=== PATIENT | female | born 1970 | race Caucasian/White ===

== ENCOUNTER 2019-02-08 13:01 | Emergency (ER) | payer OTHER, SELFPAY ==
[2019-02-08 13:10] VITALS: BP 192/85; PULSE 87; RESP 18; TEMP 37.1; O2SAT 95; BMI 45.3
--- NOTE | 2019-02-08 13:24 | ED_ITS ---
HPI - Skin/Abscess/Foreign Bdy <SHONA Pereyra - Last Filed: 02/08/19 13:27> General Chief complaint: Skin/Abscess/Foreign Body Stated complaint: Bug bite on rt ankle Time Seen by Provider: 02/08/19 13:03 Source: patient Mode of arrival: ambulatory Limitations: no limitations History of Present Illness HPI narrative: The patient is a 48-year-old female nonsmoker with history of dysfunctional uterine bleeding who presents with a chief complaint of an infected bug bite on her right lower leg. She states she was bitten by a bug last week while camping, and thought nothing of it. She states that it was normal for the past week, then yesterday she noticed extending redness, which got progressively worse today. She denies any fevers nausea vomiting or diarrhea. She states that the area of redness is now painful. She denies any history of diabetes. Related Data Home Medications Medication Instructions Recorded Confirmed etodolac 200 mg PO BIDCC #0 11/27/16 Previous Rx's Medication Instructions Recorded tramadol 50 mg PO Q6HP PRN #20 tab 11/27/16 cephalexin 500 mg PO QID #40 cap 02/08/19 Allergies Allergy/AdvReac Type Severity Reaction Status Date / Time No Known Drug Allergies Allergy Verified 02/08/19 13:18 Review of Systems <SHONA Pereyra - Last Filed: 02/08/19 13:27> Review of Systems GENERAL: Denies chills, fatigue, malaise, fever, sweats. HEENT: Denies sinus pain, ear pain, sore throat, difficulty swallowing, dizziness. RESPIRATORY: Denies dyspnea, cough, wheezing, hemoptysis, sputum. CARDIOVASCULAR: Denies chest pain, palpitations, orthopnea, edema, GASTROINTESTINAL: Denies nausea, vomiting, abdominal pain, diarrhea, constipation, melena. : Denies dysuria, frequency, incontinence, hematuria, urinary retention. MUSCULOSKELETAL: denies weakness, joint pain, or bony pain SKIN: See HPI NEUROLOGIC: Denies weakness, headache, numbness, change in speech, confusion, seizures, incoordination. PSYCHIATRIC: No concerning psychosocial issues. 12 point review of systems is negative except for those stated above PFSH <SHONA Pereyra - Last Filed: 02/08/19 13:27> Surgical History Status post delivery (09/06/91) Status post delivery (03/04/93) Social History Smoking Status: Never smoker Social History Smoking Status: Never smoker Exam <RACHEL Pereyra - Last Filed: 02/08/19 13:27> Narrative Exam Narrative: GENERAL: Pleasant obese female in no acute distress HEAD: Atraumatic. Normocephalic. No temporal or scalp tenderness. EYES: Pupils equal round and reactive. Extraocular motions intact. No scleral icterus. No injection or drainage. ENT: Nose without bleeding, purulent drainage or septal hematoma. Throat without erythema, tonsillar hypertrophy or exudate. Uvula midline. Airway patent. NECK: Trachea midline. No JVD or lymphadenopathy. Supple, nontender, no meningeal signs. CARDIOVASCULAR: Regular rate and rhythm RESPIRATORY: Clear to auscultation. Breath sounds equal bilaterally. No wheezes, rales, or rhonchi. No cough. No increased respiratory effort. No accessory muscle use. GASTROINTESTINAL: Abdomen soft, non-tender, nondistended. No hepato- splenomegaly, or palpable masses. No guarding. EXTREMITIES: See skin exam. Positive pedal pulses right foot. BACK: Nontender without deformity or crepitance. No flank tenderness. NEURO: AOx3. SKIN: 9 x 4 cm of erythema and pain to palpation the distal aspect of the right lower leg. Noted on medial side. No obvious drainage. Initial Vital Signs Initial Vital Signs: Vital Signs Temperature 98.8 F 02/08/19 13:10 Pulse Rate 87 02/08/19 13:10 Respiratory Rate 18 02/08/19 13:10 Blood Pressure 192/85 H 02/08/19 13:10 Pulse Oximetry 95 02/08/19 13:10 <Dianne David DO - Last Filed: 02/09/19 07:31> Initial Vital Signs Initial Vital Signs: Vital Signs Temperature 98.8 F 02/08/19 13:10 Pulse Rate 87 02/08/19 13:10 Respiratory Rate 18 02/08/19 13:10 Blood Pressure 192/85 H 02/08/19 13:10 Pulse Oximetry 95 08/18/19 13:10 Course <FRED Pereyra-BC - Last Filed: 02/08/19 13:27> Vital Signs - 8 hr 02/08/19 13:10 Temperature 98.8 F Pulse Rate 87 Respiratory Rate 18 Blood Pressure 192/85 H Pulse Oximetry 95 <Dianne DO Joann - Last Filed: 02/09/19 07:31> Vital Signs - 8 hr 02/08/19 13:10 Temperature 98.8 F Pulse Rate 87 Respiratory Rate 18 Blood Pressure 192/85 H Pulse Oximetry 95 MDM - Skin/Abscess/Foreign Bdy <FRED Pereyra-BC - Last Filed: 02/08/19 13:27> MDM Narrative Medical decision making narrative: The patient is a 48-year-old female who presents with chief complaint of an infected bug bite on her lower leg. Exam indicates cellulitis. Since she has no recent hospitalizations, has no systemic symptoms, and a history of diabetes, I will initiate treatment with cephalexin. I discussed at length resting her leg, monitor for worsening such as spreading redness despite several doses of antibiotics, fever etc. Encourage PCP follow- up. Discussed going back to the ER for any acute concerns such as inability keep down fluids, shortness of breath, chest pain etc. Patient has no questions or concerns upon discharge. Discharge Plan Departure Patient Disposition: Home Clinical Impression: Cellulitis Qualifiers: Site of cellulitis: extremity Site of cellulitis of extremity: lower extremity Laterality: right Qualified Code(s): L03.115 - Cellulitis of right lower limb Discharge Date/Time: 02/08/19 13:41 Interventions: ED Discharge Assessment Last Done: 02/08/19 13:40 Instructions: DI for Cellulitis -- Adult Activity Restrictions/Additional Instructions: I have given you a prescription for an antibiotic. Please monitor for fever, inability keep down fluids or any acute concerns. Please monitor for signs of systemic infection such as fever, vomiting and diarrhea. Please follow up with your primary care provider. Please come back to the emergency department for any acute concerns. Prescriptions: New cephalexin 500 mg capsule 500 mg PO QID Qty: 40 RF: 0 No Action etodolac 200 MG capsule 200 mg PO BIDCC Qty: 0 RF: 0 tramadol 50 MG tablet 50 mg PO Q6HP PRNQty: 20 RF: 0 Referrals: Glenn Minor MD [Primary Care Provider] - <Dianne David DO - Last Filed: 02/09/19 07:31> Cosign ED Attending Zekeature Attestation: I was immediately available in the department for consultation. Documentation has been reviewed. I agree with assessment and plan.
[2019-02-08 13:40] VITALS: BP 187/95
== END 2019-02-08 13:41 | disposition home or self-care (01) ==
PROVIDERS: Emergency Provider Nurse Practitioner Family; PCP Family Medicine
DX: L03.115 Cellulitis of right lower limb (principal)
CPT/HCPCS: 99282; 99283

== ENCOUNTER → 2021-02-20 15:48 | Outpatient (CLI) | payer OTHER, SELFPAY ==
--- NOTE | 2021-02-20 15:51 | DI.RAD.S_ITS ---
PROCEDURE: XR KNEE LT 3V INDICATIONS: LEFT KNEE PAIN TECHNIQUE: 3 views of the knee were acquired. COMPARISON: [facility], , KNEE 3V RIGHT, 11/27/2016, 10:25. FINDINGS: Bones: No fractures or dislocations. No suspicious bony lesions. Mild tricompartmental knee joint space narrowing with periarticular osteophyte formation, most notably involving the lateral patellofemoral knee joint. Soft tissues: Small joint effusion. No suspicious soft tissue calcifications. IMPRESSION: Tricompartmental knee joint degeneration, most notably involving the patellofemoral knee joint. Dictated by: Froy Holly [facility] Interpreted: Steve White MD on 02/20/2021 at 16:31 Transcribed by: REYNA on 02/20/2021 at 16:31 Approved by: Steve White M.D. on 02/20/2021 at 17:14
== END ==
PROVIDERS: PCP Family Medicine; Referring Provider Family Medicine; Visit Provider Family Medicine
DX: M25.562 Pain in left knee (principal); M17.12 Unilateral primary osteoarthritis, left knee
CPT/HCPCS: 73562

== ENCOUNTER → 2021-03-03 14:14 | Outpatient (CLI) | payer OTHER, SELFPAY ==
--- NOTE | 2021-03-03 | DI.MRI.S_ITS ---
PROCEDURE: MR KNEE LT WO CON INDICATIONS: Pain in left knee TECHNIQUE: Noncontrast sagittal PD fast spin echo and T2 fast spin echo with fat saturation, sagittal 3-D FLASH with fat saturation; coronal T1 spin echo and PD fast spin echo with fat saturation, and axial PD fast spin echo with fat saturation through the knee. COMPARISON: None. FINDINGS: Menisci: Medial meniscus: Ill-defined T2 hyperintense signal changes seen at the peripheral margin of the posterior horn of the medial meniscus raising possibility of meniscocapsular separation versus peripheral tear. Lateral meniscus: Intact. Cruciate ligaments: Anterior cruciate ligament: Intact. Posterior cruciate ligament: Intact. Medial structures: The medial collateral ligament: Intact. Semimembranosus tendon: Insertional tendinopathy and thickening. Visualized pes anserinus tendons: Intact. Bursal fluid: none. Lateral structures: The lateral collateral ligament intact. Biceps femoris tendon appears intact. Popliteus tendon grossly unremarkable. Iliotibial band appears intact. Anterior structures: Quadriceps tendon: Intact. Medial patellofemoral ligament: Intact. Lateral patellofemoral ligament: Intact. Patellar tendon: Mild tendinopathy. Anterior soft tissues: Prepatellar and superficial infrapatellar subcutaneous edema/fluid. Deep infrapatellar region: Normal. Bones and cartilage: Marrow: Focal marrow edema involving the posterior tibial plateau, which could be reactive to meniscal pathology described above versus marrow contusion. Medial compartment: Diffuse surface fraying and mild partial thickness chondral loss of the femoral tibial cartilage. Lateral compartment: Mild intrasubstance signal changes involving the central weight-bearing tibial cartilage. The femoral cartilage appears grossly intact. Patellofemoral compartment: Diffuse partial-thickness loss of the patellar articular cartilage. Near full-thickness fissuring of the central femoral trochlea. Joint space: Effusion: Trace joint effusion. Popliteal fossa: Small Doty's cyst measuring 3 cm in the cephalocaudal dimension. Loose bodies: None. IMPRESSION: Ill-defined T2 hyperintense signal changes involving the periphery of the posterior horn/root of the medial meniscus which suggests peripheral tear versus meniscocapsular separation. Adjacent marrow edema within the posterior tibial plateau could be marrow contusion versus reactive. Patellar tendinopathy with adjacent fluid/edema. Small Doty's cyst Tricompartmental joint degeneration as above. Dictated by: Ethan Domingo M.D. on 03/03/2021 at 15:17 Approved by: Ethan Domingo M.D. on 03/03/2021 at 15:35
== END ==
PROVIDERS: PCP Family Medicine; Referring Provider Family Medicine; Visit Provider Family Medicine
DX: M25.562 Pain in left knee (principal); M17.12 Unilateral primary osteoarthritis, left knee; M71.22 Synovial cyst of popliteal space [Baker], left knee
CPT/HCPCS: 73721

== ENCOUNTER → 2021-05-01 10:36 | Outpatient (CLI) | payer OTHER, SELFPAY ==
--- NOTE | 2021-05-01 10:37 | DI.US.S_ITS ---
PROCEDURE: US PELVIC COMPLETE INDICATIONS: DUB TECHNIQUE: Real-time scanning was performed of the pelvic organs, with image documentation. Additional endovaginal scanning was necessary due to incomplete visualization of the adnexal and endometrial structures by transabdominal scanning. COMPARISON: [facility], US, US PELVIC COMPLETE, 11/18/2020, 11:55. FINDINGS: Uterus: Uterus is normal in size at 8.6 x 4.8 x 5.2 cm. The endometrium measures 3.9 mm in combined thickness. There is a focus of uterine heterogeneous echogenicity in the left anterior intramural aspect measuring 14 x 7 x 12 mm. Ovaries: Right ovary measures 3.0 x 2.4 x 2.1 cm. Focus of decreased echogenicity is present within the right ovary measuring 2.3 x 1.4 x 1.6 cm. Left ovary measures 2.6 x 1.3 x 1.4 cm. Other: No pathologic free abdominal or pelvic fluid. IMPRESSION: Simple right ovarian cyst. Focus of uterine heterogeneous echogenicity suggestive of fibroid. Dictated by: Katy Arambula M.D. on 05/01/2021 at 15:53 Approved by: Katy Arambula M.D. on 05/01/2021 at 15:54
== END ==
PROVIDERS: PCP Family Medicine; Referring Provider Obstetrics & Gynecology; Visit Provider Obstetrics & Gynecology
DX: N93.8 Other specified abnormal uterine and vaginal bleeding (principal); N92.1 Excessive and frequent menstruation with irregular cycle; N83.291 Other ovarian cyst, right side
CPT/HCPCS: 76830; 76856

== ENCOUNTER → 2021-08-28 14:44 | Outpatient (CLI) | payer OTHER, SELFPAY ==
[2021-08-28 16:32] LABS: COVID19 -Nasal RAPID Negative (Negative)
== END ==
PROVIDERS: PCP Family Medicine; Visit Provider Obstetrics & Gynecology
DX: Z01.812 Encounter for preprocedural laboratory examination (principal); Z20.822 Contact with and (suspected) exposure to COVID-19
CPT/HCPCS: 87635

== ENCOUNTER 2021-08-29 12:22 | Day surgery (SDC) | payer OTHER, SELFPAY ==
[2021-08-23 14:52] VITALS: BMI 44.7
[2021-08-29] VITALS (11 sets, daily range): BP systolic 96–157; BP diastolic 47–80; PULSE 54–95; RESP 10–21; TEMP 35.8–36.7; O2SAT 96–100; BMI 44.7
--- NOTE | 2021-08-29 | PATH_ITS ---
[facility] Accession Number: [id number] . 01 Material submitted: . uterus - UTERUS, BILATERAL FALLOPIAN TUBES . 02 Diagnosis: Uterus, Bilateral Fallopian Tubes, Hysterectomy and Bilateral Salpingectomies (Disrupted Uterus Weight 61 grams): Portions of weakly proliferative and disordered proliferative endometrium; negative for glandular hyperplasia, cytologic atypia, or malignancy. Myometrium with patchy regions suggestive of involvement by by adenomyosis and with one leiomyoma (up to 11 mm in greatest dimension). Serosal surface with no significant histomorphologic abnormality. Portions of fallopian tube x2, complete cross-sections with rare benign paratubal cysts (3 mm); negative for atypia or malignancy. [facility] 09/04/2021 1518 Local . 02 Electronically signed: . Camelia Connor MD, Pathologist NPI- [id number] . 01 Gross description: . Received in formalin, labeled with the patient's name, and additionally labeled uterus and bilateral fallopian tubes is a disrupted uterus weighing 61 grams and aggregating 6.5 x 5.5 x 4.0 cm. The serosa is modi-brown, smooth and glistening. A probable portion of ectocervix is also present measuring 2.1 x 1.1 x 0.5 cm. The specimen is sectioned revealing predominantly unremarkable cut surfaces with a single whorled nodule measuring 1.1 cm in greatest dimension seen on a disrupted surface. Where seen, the endometrial strip is no more than 2.0 mm in thickness. Also present are two detached fimbriated fallopian tubes measuring 6.0 cm in length and up to 0.7 cm in diameter, and 5.0 cm in length and up to 0.7 cm in diameter. The serosal surface is modi-brown, smooth and glistening with numerous simple paratubal cysts up to 0.3 cm seen on each tube. The fallopian tubes are sectioned revealing stellate lumina. No masses or lesions are identified. (MS:[id number]) A1: random serosa A2-3: endomyometrium A4: first described tube A5: second described tube /MRV 09/04/2021 1518 Local . 02 Pathologist provided ICD-10: N92.1, D25.9 . 02 CPT . 103245 Performed at: 01 [facility] [address] [address], [place], [place] [id number] MD Kenneth Hayes MD Phone: [phone] Performed at: 02 [facility] [address] [place] [id number] MD Monique Vega MD Phone: [phone]
[2021-08-29] MEDS: LACTATED RINGERS 1,000 ML 42 ML IV (12:44)
--- NOTE | 2021-08-29 12:54 | SUR.OPER ---
Lithotomy on padded OR bed. Starbrick Pad Positioner under torso. Head on pillow, arms padded and tucked at sides. Legs secured in padded yellow fins stirrups.
[2021-08-29] MEDS: ACETAMINOPHEN IV 1,000 MG/100 ML VIAL 400 MG IV (13:04)
--- NOTE | 2021-08-29 13:16 | PM.PREOP ---
Pre-operative Note COVID-19 COVID-19 status: Negative Result date/Date tested (Pos, Neg/Pending): 08/28/21 Criteria for continued procedure: Non-surgical alternatives not available or appropriate per current SOC Interval Note History & Physical reviewed/Exam performed by Physician: Yes Changes to H&P: No
[2021-08-29] MEDS: BUPIVACAINE 0.5% (PF) 30 ML, EPINEPHrine 0.15 MG INJ (14:46)
[2021-08-29] MEDS: ROPIVACAINE 0.2% PF 2 MG/ML 10ML AMP 20 ML INJ (14:47)
[2021-08-29] MEDS: CEFAZOLIN 1 GM VIAL 2 GM IV (14:51)
--- NOTE | 2021-08-29 16:05 | SUR.PHASEI ---
Report to Pavel CENTENO
--- NOTE | 2021-08-29 16:06 | P.OP_ITS ---
Operative Date/Time/Diagnoses Date of procedure: 08/29/21 Time of procedure: 14:00 Pre-op diagnosis: Menorrhagia Post-op diagnosis: same Procedure & Clinicians Procedure: Procedures Operation Date: 08/29/21 13:30 Actual Procedure Side Surgeon p Laparoscopic Supracervical Hysterectomy w. bilateral salpingectomy Grupo Magdaleno MD Indications: Kia is a 50 yo , LMP 08/16/2020 who was seen by Dr. Loraine Smith in October 2020 due to episodic bleeding after she discontinued use of Depo-Provera in June 2020 following at least 6 years of continued use. An in-office US by Dr. Smith showed midline uterus, anteflexed at prior section scar, measuring 8.04 x 4.4 cm.? Endometrium thin throughout most of uterus, but fundal lesion measuring 10.5 x 8.9 mm.? No additional blood flow, etiology unclear.? Left ovary visualized, 3.49 x 1.99 cm.? 1.81 simple, involuting appearing cyst.? Right ovary 1.99 x 1.53 cm with multiple small follicles.? Patient tolerated exam well, no free fluid in the pelvis.? Endometrial biopsy performed at that visit produced a specimen which showed scant fragments of endometrial glandular elements which showed no evidence of atypia or other cytologic abnormalities.? She experienced no further bleeding until 01/26 when she started a period which lasted until 03/04/2021.? Because her menopausal status was unclear, FSH performed 02/16/2021 which was 12.7 (menopausal 16.7-113.6) with LH 6.5 (menopausal 10.87-58.64).? She started bleeding again 03/19/2021 and was placed on 10 days of Provera which resolved her bleeding and she's had no further bleeding since that time.? She's not having any VMS, NS, insomnia, or symptoms of UG atrophy although she's not sexually active. A follow-up US performed 05/01/2021 showed: FINDINGS:? ?? Uterus:? Uterus is normal in size at 8.6 x 4.8 x 5.2 cm.? The endometrium measures 3.9 mm in combined thickness.? There is a focus of uterine heterogeneous echogenicity in the left anterior intramural aspect measuring 14 x 7 x 12 mm. ? Ovaries:? Right ovary measures 3.0 x 2.4 x 2.1 cm.? Focus of decreased echogenicity is present within the right ovary measuring 2.3 x 1.4 x 1.6 cm.? Left ovary measures 2.6 x 1.3 x 1.4 cm. ? Other: ? No pathologic free abdominal or pelvic fluid. ? IMPRESSION:? Simple right ovarian cyst. ? Focus of uterine heterogeneous echogenicity suggestive of fibroid. Since by initial assessment of the patient is in the fall of 2020, her periods have continued to be completely chaotic with extremely heavy flow, passage of clots, severe cramping, and accidental overflows despite use of tampons and pads.? After consideration of all options the patient has decided to proceed with laparoscopic supracervical hysterectomy with bilateral salpingectomy.? She is currently scheduled for her surgery in the Main OR of [facility] on 08/29/2021 and presents today for her scheduled surgery. Surgeon: Grupo Magdaleno Supervisor Braiding: Kimberly Glover Anesthesia Type: General Operative Notes Findings: The uterus is upper limits of normal size and the anterior cul-de-sac demonstrates changes consistent with prior sections. Both fallopian tubes are normal in their entirety. There was a 1.5 cm follicular cyst in the left ovary but otherwise the ovaries normal. The right ovary is normal. Appendix is visualized and is normal. Posterior cul-de-sac does not demonstrate any significant adhesions. Upper abdomen is normal to laparoscopic visualization. Closure Type: primary Specimen(s): left tube, right tube and uterus Applied: catheter Estimated blood loss (mL): 50 Blood products transfused: none Procedure in detail: With the patient under satisfactory general endotracheal anesthesia in the modified dorsal lithotomy position, the perineum, vagina, and abdomen were prepped and draped in the usual manner for laparoscopic supracervical hysterectomy. A pre-surgical safety time-out was then taken in accordance with [facility] protocols. A Bray catheter was inserted in the bladder and a speculum inserted in the vagina. The cervix was visualized and a single- tooth tenaculum was applied to the anterior lip. The endocervical canal was dilated so as to be able to introduce a VCare uterine manipulator with a medium cup. The umbilicus was then infiltrated with 0.5% Marcaine with epinephrine and a 5 mm vertical umbilical incision was then made. Veress needle was used to insufflate the abdomen with carbon dioxide and once fully insufflated, a 5 mm trocar and sleeve were placed through the umbilical incision. Presence of the laparoscopic sleeve inside the abdomen was confirmed by laparoscopic inspection and a 2nd and 3rd 5 mm port was placed in the right and left mid quadrants using the same technique as the umbilicus. Using a 3 puncture technique the pelvis and abdomen were thoroughly visualized and the patient was placed in steep Trendelenburg. The left fallopian tube was elevated with a grasping forcep and the fimbria varicose coagulated and divided using the PK device. The dissection was carried down across the mesosalpinx and the tube was amputated at the cornua. The tube was then removed through 1 of the 5 mm ports and submitted as part of the aggregate specimen. Section will PK was then taken down across the utero-ovarian and round ligaments then downward lateral to the vessels on the left side. The bladder flap was initiated on the left side and carried across the midline with the PK device. Vessels were coagulated at the level of the endocervical canal and attention was turned to the right side. The right f allopian tube was grasped by the fimbria and elevated so as to be able to coagulate and divide the fimbria varicose on the right. The dissection with the PK was then taken across the mesosalpinx and the tube on the right amputated. It too was removed through a 5 mm port and submitted as part of the aggregate specimen. The dissection on the right side was then carried out as it had been on the left with coagulation and division of the utero-ovarian ligament, round ligament, then downward lateral to the vessels to the level of the endocervical canal. The bladder flap was completed without difficulty and the vessels on the right side were coagulated. The VCare uterine manipulator was then removed. There was complete blanching of the uterine fundus and the Glo loop was used to amputate the uterine corpus at the level of the endocervical canal. Hemostasis was excellent and the PK device was used to coagulate the endocervical canal. A 4 cm transverse incision along the line of her old scars was then made and carried down to the deep fascia. A 12 mm port was then introduced through the incision and a large Endo-Catch was used to retrieve the uterus. The fascia was extended bilaterally and an Yuan device was placed into the Endo-Catch bag so was to be able to morcellate the specimen. Morcellation was accomplished without difficulty and the mini-laparotomy incision was closed with 0 Vicryl in a running stitch to close the fascia and subcutaneous tissues. The abdomen was then reinsufflated and laparoscopic inspection of the pelvis conducted. There were no other abnormalities and no bleeding noted. The pneumoperitoneum was then vented and the skin edges of all the incisions were brought together with 4-0 Monocryl inverted interrupted stitches. Appropriate dressings were then applied and the patient awakened from anesthesia. She was then transferred to the PACU for a period of observation and recovery having tolerated the procedure well. Complications: none Post-operative Condition: stable Disposition: PACU Plan for aftercare: Routine postoperative care with discharge AM POD #1.
[2021-08-29] MEDS: LACTATED RINGERS 1,000 ML 100 ML IV (16:41)
[2021-08-29] MEDS: DOCUSATE 100 MG CAPSULE 200 MG PO (20:26)
[2021-08-30] MEDS: LACTATED RINGERS 1,000 ML 100 ML IV (02:03)
[2021-08-30 03:12] VITALS: BP 142/70; PULSE 70; RESP 18; TEMP 36.6; O2SAT 100
[2021-08-30] MEDS: ACETAMINOPHEN 325 MG TABLET 650 MG PO (05:03)
[2021-08-30] MEDS: IBUPROFEN 600 MG TABLET PO (05:04)
[2021-08-30 05:58] LABS: Add Manual Diff / Slide Review NO; Basophils Absolute Auto 0 /uL (0-100); Eosinophils Absolute Auto 0 /uL (0-450); Hematocrit 32.8 % (36-46); Hemoglobin 10.9 g/dL (12.0-16.0); Lymphocytes Absolute Auto 1000 /uL (1100-4500); Lymphocytes Percent Auto 5.3 % (25-40); Mean Corpuscular HGB Conc 33.1 % (30-36); Mean Corpuscular Hemoglobin 29.3 PG (26-34); Mean Corpuscular Volume 88.6 fL (80-100); Monocytes Absolute Auto 600 /uL (0-900); Monocytes Percent Auto 3.3 % (3-14); Neutrophils Absolute Auto 17400 /uL (1500-7000); Neutrophils Percent Auto 91.4 % (50-75); Platelet Count 102 X10^3/uL (150-400); Red Cell Distribution Width 14.5 % (11.6-14.8); White Blood Cell Count 19.1 X10^3/uL (4.5-11.0)
[2021-08-30 07:00] VITALS: BP 138/70; PULSE 72; RESP 19; TEMP 36.1; O2SAT 100
--- NOTE | 2021-08-30 07:53 | P.DS_ITS ---
History of Present Illness History of Present Illness Date Patient Seen: 08/30/21 Time Patient Seen: 07:54 Chief complaint: [facility] W/NICOLE SALPINGECTOMY *OPB* Narrative: Kia is a 50 yo , LMP 08/16/2020 who was seen by Dr. Loraine Smith in October 2020 due to episodic bleeding after she discontinued use of Depo-Provera in June 2020 following at least 6 years of continued use. An in-office US by Dr. Smith showed midline uterus, anteflexed at prior section scar, measuring 8.04 x 4.4 cm.? Endometrium thin throughout most of uterus, but fundal lesion measuring 10.5 x 8.9 mm.? No additional blood flow, etiology unclear.? Left ovary visualized, 3.49 x 1.99 cm.? 1.81 simple, involuting appearing cyst.? Right ovary 1.99 x 1.53 cm with multiple small follicles.? Patient tolerated exam well, no free fluid in the pelvis.? Endometrial biopsy performed at that visit produced a specimen which showed scant fragments of endometrial glandular elements which showed no evidence of atypia or other cytologic abnormalities.?Since by initial assessment of the patient is in the fall of 2020, her periods have continued to be completely chaotic with extremely heavy flow, passage of clots, severe cramping, and accidental overflows despite use of tampons and pads.? After consideration of all options the patient has decided to proceed with laparoscopic supracervical hysterectomy with bilateral salpingectomy.? She is currently scheduled for her surgery in the [facility] on 08/29/2021 and was admitted for this scheduled procedure. Discharge Providers Provider Date of admission: 08/29/2021 Discharge Date: 08/30/21 Primary care physician: Glenn Minor MD Discharge provider: Grupo Magdaleno MD Summary Hospital Course Discharge Diagnosis: Menorrhagia Hospital Course: On the afternoon of 08/29/2021, the patient underwent an uneventful laparoscopic supracervical hysterectomy with removal of both fallopian tubes. Details of that procedure and findings at the time of surgery are well summarized on my operative note of that date. Following her surgery the patient has had prompt return of bowel and bladder function, she is ambulating independently, tolerating regular diet, and her pain is well controlled with oral pain medications. She will be discharged at this time to home with medications to include OTC Tylenol/ibuprofen for post-surgical pain and OTC stool softeners for constipation as needed. Prior to discharge the patient was counseled regarding precautionary symptoms, limitations of activity, medications, and plans for follow-up which will be in 2 weeks. Status at Discharge Cognitive/behavioral status at discharge: oriented Functional status at discharge: independent ambulation Overall status at discharge: patient is progressing back to baseline Time Spent with Patient Time spent: Less than 30 minutes Exam Vital Signs (past 8 hours): - 08/30/21 03:12 08/30/21 07:00 Temperature 97.9 F 96.9 F L Pulse Rate 70 72 Respiratory Rate 18 19 Blood Pressure 142/70 H 138/70 Pulse Oximetry 100 100 Oxygen Delivery Method Room Air Oxygen Flow Rate 0 Const General: cooperative and comfortable Nutritional Appearance: average body habitus Orientation: alert and oriented x3 HENMT Head: normal to inspection, normocephalic and atraumatic Face and sinus: face symmetric Eyes General: appearance normal, both eyes and all related structures Conjunctivae: conjunctivae normal Sclera: sclerae normal EOM: EOM intact bilaterally Neck Neck: normal visual inspection Resp Effort & Inspection: normal respiratory effort and able to speak in complete sentences Auscultation: clear to auscultation bilaterally Cardio Rate: regular rate Rhythm: regular rhythm Heart Sounds: S1 normal, S2 normal and no murmurs GI Inspection: normal to inspection and incision (Laparoscopy port incision and mini-lap dressings clean and dry) Palpation: soft and no hepatosplenomegaly Auscultation: normal bowel sounds General: other (Deferred) Psych Appearance: grossly normal Mental Status: mental status grossly normal Speech and Movement: speech and movement normal Mood: congruent mood Affect: normal affect Attitude: cooperative Thought Process: normal Thought Content: normal Judgment: judgment good Objective Labs Result Diagrams: 08/30/21 05:39 Labs: Laboratory Results - last 24 hr 08/30/21 05:39 WBC 19.1 H RBC 3.70 L Hgb 10.9 L Hct 32.8 L MCV 88.6 MCH 29.3 MCHC 33.1 RDW 14.5 Plt Count 102 L Neut % (Auto) 91.4 H Lymph % (Auto) 5.3 L [place] % (Auto) 3.3 Eos % (Auto) 0.0 L Baso % (Auto) 0.0 Neut # (Auto) 67136 H Lymph # (Auto) 1000 L [place] # (Auto) 600 Eos # (Auto) 0 Baso # (Auto) 0 PFSH Surgical History Status post delivery (09/06/91) Status post delivery (03/04/93) Social History household members: spouse Smoking Status: Never smoker alcohol intake: current Discharge Assessment & Plan Assessment and Plan Assessment: S/P laparoscopic supracervical hysterectomy with bilateral salpingectomy for menorrhagia Plan of Treatment: Routine postoperative care with follow-up scheduled for 2 weeks postop. Discharge Plan Discharge Plan Patient Disposition: Home Provider Discharge Comment: Please review the written instructions provided when your discharge from the hospital. Your follow-up appointment will be in 2 weeks and I look forward to seeing you then. If in the meanwhile however you have any issues, problems, or concerns, please feel free to contact me through the office phone or via the patient portal Discharge orders & Medications Discharge Orders: Discharge (Order); Ordered 08/30/21 Ordered By: Grupo Magdaleno Prescriptions: Continued cetirizine [Zyrtec] 10 mg tablet 10 mg PO DAILY PRN (Reason: Allergies) 0RF lisinopril 40 mg tablet 40 mg PO DAILY 0RF hydrochlorothiazide 12.5 mg capsule 12.5 mg PO DAILY 0RF Follow up/Referrals: Glenn Minor MD [Primary Care Provider] - Diet/Activity/Treatments Diet: Diet as Tolerated Activity: As tolerated Other treatments: [id number] Tylenol and/or ibuprofen for pain Skin/Wound/Dressing Care Dressing: Dressings may be removed on the morning of 08/31/2021 Visit Report/Discharge Packet Instructions: DI for Hysterectomy, DI for Laparoscopy Print Language: Mauritian Discharge Data Primary Care Provider: Glenn Minor Attending Provider: Grupo Magdaleno VTE Deep Vein Thrombosis/Pulmonary Embolism Present on Admission: No
[2021-08-30 08:13] VITALS: BP 138/74
[2021-08-30] MEDS: hydroCHLOROthiazide 25 MG TABLET 12.5 MG PO (08:13)
[2021-08-30] MEDS: lisinopriL 20 MG TABLET 40 MG PO (08:13)
[2021-08-30] MEDS: DOCUSATE 100 MG CAPSULE 200 MG PO (08:13)
[2021-08-30 08:57] VITALS: TEMP 36.1
--- NOTE | 2021-08-30 09:00 | PC.NURSE ---
Pt is dressed and ready for discharge home with Spouse. Pt denies pain, nausea, or shortness of breath. IV has been removed. Went over d/c instructions with Pt-discussed d/c meds, time of last dose, reviewed stroke education, encouraged fluid intake and deep breathing exercise and reduce lifting heavy weights. Pt deines further questions and will follow up as directed.
--- NOTE | 2021-08-30 11:04 | CM.DANOTE ---
DCP: Case received, EMR reviewed and met with patient. Introduced self and role. Patient was getting ready to leave, was independently ambulating in her room. DCP assessment completed with information currently available. Patient is a 50 year old female who admitted yesterday morning to the care of the RN NEONAT[facility] team. PCP: Dr. Minor. Payer: confirmed: [employer]. Patient came to the hospital for a surgical procedure. Patient had laparascopic hysterectomy. According to notes, patient has history of excessive and frequent menstruation with irregular Leiomyoma of uterus. Met with patient in her room. She is independent, has family support. Her mother was picking her up. She resides here in [place] with her spouse, Teofilo. P: Patient discharging home today. Connie Valderrama RN/Cranberry [employer] Supervisor Discharge Planning/Care Management CM Discharge Assessment Start: 08/30/21 10:56 Freq: Status: Active Protocol: Document 08/30/21 11:03 (Rec: 08/30/21 11:04 [id number]) Discharge Planning Assessment Assigned Wheel Setter Connie Valderrama RN/[place]berry [place] Supervisor Advance Directives? Yes Advance Directives on File No History Provided By Patient,Medical Record Prior Living Arrangements House Household Members spouse Type of transporation used prior to Drives own vehicle admit Independent with ADL's Yes Is patient alert and oriented? Yes Caregiver for Another No Barriers to Discharge No Discharge Plan Home Transportation Arrangement Family Referrals Initiated None needed Whiteboard Updated in Patient Room with Yes name and ext. # of Wheel Setter Review Status In Process Next Review Type Continued Stay Review Pre-Anesthesia Assessment Start: 08/23/21 14:52 Freq: Status: Discharge Protocol: Document 08/23/21 14:52 [facility] (Rec: 08/23/21 14:55 [facility] [id number]) Pre-Anesthesia Assessment Patient Information Reviewed Via Chart Review Comment COVID screen @ 08/28/21 Seen Specialist in Last 12 Months Yes Specialist Seen Anode Worker Primary Language Ethiopian Mixing Place Supervisor Required No Height 5 ft 5 in Weight 269 lb Body Mass Index (BMI) 44.7 Barriers to Learning None Anesthesia Review Requested No Baseball Sewer Hand No alcohol intake current alcohol intake frequency 0-2 drinks per day Smoking Status Never smoker Substance Use Type does not use History of Falling (Recent or History of No ) Mental Status Oriented to own ability Currently Taking a Beta Marva No Anti-Coagulant Therapy No Has a Insulator Technician No Cardiac Testing No Hx Pacemaker/ICD No Pacemaker Rep Required? No Cardiac Clearance Received Not Applicable Urinary Catheter Present No Hx Urinary Self Catheterization No Diabetes No Patient No Lactating No Comment LMP 08/14/21 Marital Status Lives With spouse Advance Directives? Yes
== END 2021-08-30 09:02 | disposition home or self-care (01) ==
LOC: OR 12:24 → AC 12:26
PROVIDERS: PCP Family Medicine; Referring Provider Obstetrics & Gynecology; Visit Provider Obstetrics & Gynecology
PROC: 0UT94ZL Resection of Uterus, Supracervical, Percutaneous Endoscopic Approach (ICD-10-PCS; CPT 58542; principal; 2021-08-29 13:30)
DX: D25.9 Leiomyoma of uterus, unspecified (principal); I10 Essential (primary) hypertension; N83.02 Follicular cyst of left ovary; N80.0 Endometriosis of uterus; N83.8 Other noninflammatory disorders of ovary, fallopian tube and broad ligament
CPT/HCPCS: 58542; 36415; 85025; J0131; J0171; J0330; J0690; J1100; J1170; J1885; J2250; J2405; J2704; J2795; J3010

== ENCOUNTER → 2021-10-19 08:10 | Outpatient (CLI) | payer OTHER, SELFPAY ==
[2021-08-29 16:33] VITALS: BMI 44.7
== END ==
PROVIDERS: Family Provider Family Medicine; PCP Family Medicine; Referring Provider Family Medicine; Visit Provider Family Medicine
DX: R20.0 Anesthesia of skin (principal)
CPT/HCPCS: 95886; 95909